=== PATIENT | male | born 1955 | race Caucasian/White ===

== ENCOUNTER → 2020-10-16 | Day surgery (SDC) | payer BC ==
[~2020-10-16] MED LIST: ACETAMINOPHEN/1 EAC1 PO; GENTAMICIN 80MG/NS 100 ML 200 ML IV ONE; IOPAMIDOL 300MG/ML 50ML INFUS..BTL IV ONE; ZOLOFT100 MG PO
[2020-10-16 15:00] VITALS: BP 126/76
== END | disposition home or self-care (01) ==
LOC: OR 10:49
PROVIDERS: ATTEND Urology
DX: N13.2 Hydronephrosis with renal and ureteral calculous obstruction (principal); R31.0 Gross hematuria; I10 Essential (primary) hypertension; Z87.442 Personal history of urinary calculi; Z01.810 Encounter for preprocedural cardiovascular examination; Z01.812 Encounter for preprocedural laboratory examination; Z01.818 Encounter for other preprocedural examination; Z20.822 Contact with and (suspected) exposure to COVID-19
CPT/HCPCS: 50590; 74018; 93005; J1580; U0002